=== PATIENT | female | born 1955 | race Caucasian/White ===

== ENCOUNTER 2016-05-02 05:50 | Observation (INO) | payer OTHER, BC ==
[2016-04-27 14:39] LABS: BASOPHILS 0.3 %; BASOPHILS ABSOLUTE 0.04 10/3/uL (0.0-0.16); EOSINOPHILS 2.2 %; EOSINOPHILS ABSOLUTE 0.29 10/3/uL (0.0-0.53); HEMATOCRIT 39.9 % (36.0-48.0); IMMATURE GRANULOCYTES 0.6 %; IMMATURE GRANULOCYTES ABSOLUTE 0.08 10/3/uL (0.0-0.11); LYMPHOCYTES 34.5 %; LYMPHOCYTES ABSOLUTE 4.56 10/3/uL (0.67-4.30); MANUAL DIFF NO %; MEAN CORPUS HGB CONC 32.6 g/dL (32.0-36.0); MEAN CORPUSCULAR HEMOGLOB 27.3 pg (26.0-34.0); MEAN CORPUSCULAR VOLUME 83.8 fL (80-100); MEAN PLATELET VOLUME 9.6 fL (9.2-13.0); MONOCYTES 5.5 %; MONOCYTES ABSOLUTE 0.73 10/3/uL (0.21-1.20); NEUTROPHILS 56.9 %; NEUTROPHILS ABSOLUTE 7.51 10/3/uL (2.02-8.40); PLATELET COUNT 326 10/3/uL (150-400); RBC DISTRIBUTION WIDTH 15.5 % (12.0-16.0); RED CELL COUNT 4.76 10/6/uL (4.0-5.6); WHITE BLOOD CELLS 13.2 10/3/uL (4.5-10.5)
[2016-04-27 14:48] LABS: INTERNATIONAL NORMAL RATI 1.1 UNITS (-); PARTIAL THROMBO TIME 26.9 SEC (22.5-37.2)
[2016-04-27 14:56] LABS: BUN (BLOOD UREA NITROGEN) 24 MG/DL (6-23); CALCIUM, SERUM 8.8 MG/DL (8.5-10.4); CHLORIDE, SERUM 102 MMOL/L (96-112); CO2 (CARBON DIOXIDE) 26 MMOL/L (24-34); CREATININE 1.42 MG/DL (0.55-1.02); GFR AFRICAN AMERICAN 46 ML/MIN (>=60); GFR NON AFRICAN AMERICAN 40 ML/MIN (>=60); GLUCOSE, SERUM 219 MG/DL (60-99); POTASSIUM, SERUM 4.5 MMOL/L (3.5-5.3); SODIUM, SERUM 138 MMOL/L (135-148)
[2016-04-27 16:54] LABS: ASCORBIC ACID (UR NOT ORDER) NEG (NEG); BILIRUBIN, URINE NEGATIVE (NEG); KETONE, URINE NEGATIVE (NEG); LEUKOCYTE ESTERASE(NOT OR TRACE (NEG); WBC (NOT ORDERED) (RFLEX) 4 (0-5)
--- NOTE | ~2016-05-02 | OP ---
Record Of Operation [facility] [address] [place]. [address] NAME: VIDYA AGEE : 55 STATUS : DIS IN PAT#: [id number] AGE: 60 ADM/REG DATE : 05/02/16 MR#: [id number] REPORT SERV DATE: 05/04/16 DICTATED BY: BRAULIO GUTIERREZ DATE: 05/04/16 REPORT STATUS : Draft TRANSCRIBED BY: MODL DATE: 05/04/16 DATE OF PROCEDURE: 05/02/2016 PREOPERATIVE DIAGNOSES: Complex hyperplasia with atypia and obesity. POSTOPERATIVE DIAGNOSES: Complex hyperplasia with atypia and obesity. PROCEDURES: 1. Robot-assisted laparoscopic hysterectomy with bilateral salpingo-oophorectomy. CPT code 07580. 2. Intraoperative sentinel lymph node identification. CPT code 97465. 3. Laparoscopic lymph node biopsy, CPT code 65934. 4. Cystoscopy. SURGEON: Braulio Gutierrez MD. ANESTHESIA: General. ESTIMATED BLOOD LOSS: 30 mL. CRYSTALLOID: 2 L. URINE OUTPUT: 125 mL. DRAINS: Lopez. FINDINGS: No gross evidence of tumor within the endometrial cavity. No grossly enlarged lymph nodes present. Bilateral sentinel lymph nodes were identified and removed as separate specimens. PATHOLOGY: Uterus, uterine cervix, bilateral fallopian tubes and ovaries, and bilateral sentinel lymph nodes. COMPLICATIONS: None. POSTOPERATIVE PLAN: Extubated to PACU. PROCEDURE IN DETAIL: After informed consent was signed, the patient was taken to the operating room and placed in dorsal supine position, where adequate general anesthesia was administered. She was then placed in dorsal lithotomy position in Peter stirru, and prepped and draped in the usual fashion. A Lopez catheter was placed. Uterus was sounded, cervix was dilated, and the LORENZO uterine manipulator was assembled and deployed. ICG green was injected into the cervix at 3 and 9 o'clock. A midline incision was made with a scalpel and carried down to the fascia, which was incised, muscle was , posterior sheath was entered sharply, trocar was placed, and abdomen was insufflated with CO2 gas. Robot trocars were placed in the bilateral upper quadrants, and also right lateral flank, and an Record Of Operation [place] [address] [facility] [place] [address] NAME: VIDYA AGEE : 55 STATUS : DIS IN PAT#: [id number] AGE: 60 ADM/REG DATE : 05/02/16 MR#: [id number] REPORT SERV DATE: 05/04/16 DICTATED BY: BRAULIO GUTIERREZ DATE: 05/04/16 REPORT STATUS : Draft TRANSCRIBED BY: HAMILTON DATE: 05/04/16 librarian assistant port was placed in the left upper quadrant, all under direct visualization. The patient was placed in steep Trendelenburg, and the robot was docked in the usual fashion. Bilateral round ligaments were taken with the bipolar cautery, transected with monopolar scissors, and the pelvic peritoneum was taken down lateral and parallel to the infundibulopelvic ligaments. The paravesical and pararectal spaces were developed, and using the firefly scopes, the bilateral sentinel lymph nodes were identified, removed as separate specimens. The ureters were identified and reflected medially. Clips were placed in the origins of the uterine arteries bilaterally. The infundibulopelvic ligaments were then isolated, taken with bipolar cautery, transected with monopolar scissors. The broad ligament was taken down to the level of the cervix. The posterior colpotomy was made with monopolar scissors. Next, the vesicouterine peritoneum was then incised and the bladder was taken down well beneath the level of the anterior GISELA ring, and the anterior colpotomy was made. The uterine vessels were then taken at the cervix with bipolar cautery, transected with monopolar scissors, and the parametria reflected off the cervical stroma. The anterior and posterior colpotomies were made connected using monopolar scissors, and the uterus, uterine cervix, and bilateral adnexa were then brought out through the vagina. The uterus was opened at the bedside, and there appeared to be no gross evidence of tumor. The vagina was then closed with 0 180 V-Loc suture with a running stitch. The pelvis was irrigated and found to be hemostatic. All instruments were removed from the abdomen. The robot was undocked. The CO2 gas was evacuated. The Lopez catheter was removed and the cystoscope was placed through the urethra, and the bladder was distended with appropriate media. Bilateral brisk ureteral jets were noted suggesting bilateral ureteral patency. The cystoscope was removed and the bladder was drained. CO2 gas was then reduced into the abdomen, and using the laparoscope, the pelvis was re-examined and found to be hemostatic. The laparoscope and all trocars were then removed from the abdomen, and the patient was placed back in dorsal supine position. The fascia from the supraumbilical incision and the left upper quadrant incision were closed with 0 Vicryl suture, and the skin from all trocar sites was closed with 4-0 Monocryl and Dermabond. The patient was awakened, extubated, and sent to the PACU in stable condition. KEIRA/HAMILTON Braulio Gutierrez MD / [id number] CC: MD JAKE Benton
[~2016-05-02 05:50] MED LIST: CELEBREX2 PO; CYMBALTA60 PO; GLUCOPHAGE1000 MG PO; GLUCOTROL5 PO; HYZAAR1 TAB PO; JANUVIA100 MG PO; MEVACOR PO; PRILO PO; SYN125 PO; ULTRAM50 PO
[2016-05-03 04:16] LABS: BASOPHILS 0.1 %; BASOPHILS ABSOLUTE 0.02 10/3/uL (0.0-0.16); EOSINOPHILS 0.1 %; EOSINOPHILS ABSOLUTE 0.01 10/3/uL (0.0-0.53); HEMOGLOBIN 10.5 g/dL (12.0-16.0); IMMATURE GRANULOCYTES 0.7 %; LYMPHOCYTES 13.5 %; LYMPHOCYTES ABSOLUTE 1.94 10/3/uL (0.67-4.30); MEAN CORPUS HGB CONC 32.3 g/dL (32.0-36.0); MEAN CORPUSCULAR HEMOGLOB 26.9 pg (26.0-34.0); MEAN CORPUSCULAR VOLUME 83.1 fL (80-100); MEAN PLATELET VOLUME 10.1 fL (9.2-13.0); MONOCYTES 5.7 %; MONOCYTES ABSOLUTE 0.82 10/3/uL (0.21-1.20); NEUTROPHILS 79.9 %; NEUTROPHILS ABSOLUTE 11.52 10/3/uL (2.02-8.40); PLATELET COUNT 318 10/3/uL (150-400); RBC DISTRIBUTION WIDTH 15.8 % (12.0-16.0); RED CELL COUNT 3.91 10/6/uL (4.0-5.6); WHITE BLOOD CELLS 14.4 10/3/uL (4.5-10.5)
[2016-05-03 04:20] LABS: HEMATOCRIT 32.5 % (36.0-48.0); MANUAL DIFF NO %
[2016-05-03 04:44] LABS: CALCIUM, SERUM 8.4 MG/DL (8.5-10.4); CHLORIDE, SERUM 102 MMOL/L (96-112); CO2 (CARBON DIOXIDE) 24 MMOL/L (24-34); CREATININE 1.58 MG/DL (0.55-1.02); GFR AFRICAN AMERICAN 41 ML/MIN (>=60); GFR NON AFRICAN AMERICAN 35 ML/MIN (>=60); GLUCOSE, SERUM 259 MG/DL (60-99); POTASSIUM, SERUM 5.1 MMOL/L (3.5-5.3); SODIUM, SERUM 135 MMOL/L (135-148)
[2016-05-03 04:46] LABS: BUN (BLOOD UREA NITROGEN) 20 MG/DL (6-23)
[2016-05-03] MEDS ORDERED: PCET PO (08:15)
[2016-05-03] MEDS ORDERED: COMP10B PO (08:15)
[2016-05-03] MEDS ORDERED: MYLICON 80 MG T80 MG PO (08:17)
== END 2016-05-03 09:43 | disposition home or self-care (01) ==
LOC: SDC 05:50 → 4EA 13:39
PROVIDERS: Obstetrics & Gynecology Gynecology
PROC: 0UT24ZZ Resection of Bilateral Ovaries, Percutaneous Endoscopic Approach (ICD-10-PCS; 2016-05-02)
PROC: 0UT74ZZ Resection of Bilateral Fallopian Tubes, Percutaneous Endoscopic Approach (ICD-10-PCS; 2016-05-02)
PROC: 8E0W4CZ Robotic Assisted Procedure of Trunk Region, Percutaneous Endoscopic Approach (ICD-10-PCS; 2016-05-02)
PROC: 07BC4ZX Excision of Pelvis Lymphatic, Percutaneous Endoscopic Approach, Diagnostic (ICD-10-PCS; 2016-05-02)
PROC: 0UT94ZZ Resection of Uterus, Percutaneous Endoscopic Approach (ICD-10-PCS; principal; 2016-05-02 07:30)
PROC: 0UTC4ZZ Resection of Cervix, Percutaneous Endoscopic Approach (ICD-10-PCS; 2016-05-02 07:30)
DX: D26.1 Other benign neoplasm of corpus uteri (principal); D25.9 Leiomyoma of uterus, unspecified; N85.00 Endometrial hyperplasia, unspecified; I10 Essential (primary) hypertension; E78.5 Hyperlipidemia, unspecified; E11.9 Type 2 diabetes mellitus without complications; E03.9 Hypothyroidism, unspecified; Z95.810 Presence of automatic (implantable) cardiac defibrillator; Z88.5 Allergy status to narcotic agent; Z88.6 Allergy status to analgesic agent; Z79.1 Long term (current) use of non-steroidal anti-inflammatories (NSAID); Z79.84 Long term (current) use of oral hypoglycemic drugs; Z79.891 Long term (current) use of opiate analgesic; Z79.899 Other long term (current) drug therapy
CPT/HCPCS: 36415; 71020; 80048; 81001; 82962; 85025; 85610; 85730; 86850; 86900; 86901; 88112; 88305; 88307; 88342; 93005; 94660; 96374; 96376; A9270-GY; G0378; J0330; J0694; J2250; J2370; J2405; J2550; J2710; J2795; J3010